=== PATIENT | female | born 1945 | race Caucasian/White ===

== ENCOUNTER 2018-08-07 15:41 | Observation (INO) | payer OTHER ==
[2018-08-07] MEDS ORDERED: MORPHINE 2 MG/ML SYR IV PRN (16:47)
[2018-08-07 17:19] LABS: Absolute Lymphocytes (CBC) 2.1 K/uL (0.7-4.9); Absolute Monocytes 0.5 K/uL (0.1-1.3); Absolute Neutrophil 5.1 K/uL (1.8-8.0); Basophils % 0.6 % (0-1.3); Eosinophils % 2.9 % (0-4.4); Hematocrit 41.1 % (36.0-45.0); Lymphocytes % 26.1 % (15.3-44.8); MPV 7.6 fL (7.6-11.3); Monocytes % 6.4 % (3.3-12.3); RBC Red Blood Cell Count 4.84 M/uL (3.86-4.86)
[2018-08-07] MEDS: NACHLORIDE 0.45% 1,000 ML IV SCH (17:29)
[2018-08-07 17:34] LABS: Albumin 4.1 g/dL (3.4-5.0); Bilirubin Total 0.4 mg/dL (0.2-1.0); Potassium 3.8 mmol/L (3.5-5.1)
[2018-08-07 18:24] LABS: Urine Appearance CLEAR; Urine Bilirubin NEGATIVE (NEG); Urine Blood 1+ (NEG); Urine Color YELLOW; Urine Glucose NEGATIVE (NEG); Urine Protein NEGATIVE (NEG); Urine Specific Gravity 1.015 (1.005-1.030); Urine Urobilinogen 0.2 mg/dL (0.2-1.0)
[2018-08-07 18:35] VITALS: BMI 29.2
[2018-08-07 18:39] LABS: Urine Microscopic Reflex ORDER UMIC
[2018-08-07 18:51] LABS: Urine Bacteria 20-50 /HPF (<20); Urine Culture Reflex Order REFLEXED; Urine RBC <5 /HPF (NONE SEEN)
--- NOTE | 2018-08-07 20:15 | RAD REPORT ---
EXAM DESCRIPTION: CT - Abdomen Pelvis W Contrast - 08/07/2018 7:44 pm CLINICAL HISTORY: Abdominal pain/right lower quadrant pain COMPARISON: [id number] TECHNIQUE: Computed axial tomography of the abdomen pelvis was obtained. 100 cc Isovue-300 was admin istered intravenously. Oral contrast was not requested which limits evaluation of bowel. All CT scans are performed using dose optimization technique as appropriate and may include automated exposure control or mA/KV adjustment according to patient size. FINDINGS: Fatty liver Cholecystectomy Spleen, pancreas, adrenal and kidneys appear unremarkable. There is no evidence of diverticulitis. Normal appendix Hysterectomy Sub centimeter left lower lobe opacity unchanged likely benign IMPRESSION: No acute abnormality is displayed.
[2018-08-08] MEDS: NACHLORIDE 0.45% 1,000 ML IV SCH ×2 (02:40→08:32)
[2018-08-08 08:40] VITALS: O2SAT 96
[2018-08-08 08:52] VITALS: BP 121/62; TEMP 98
--- NOTE | 2018-08-09 00:13 | HP ---
Date of Admission: 08/07/2018 Chief Complaint: Abdominal pain. History Of Present Illness: A 72-year-old female was brought to the office because of abdominal pain . The patient had evaluation done. She was found to have tenderness in the right umbilical area. T he patient was admitted for observation because of the amount of pain. The patient denied any histor y of vomiting. No history of discolored stools. Past Medical History: The patient is known to have history of peptic ulcer disease, hypothyroidism, hypertension, and hyperlipidemia. Past Surgical History: Positive for right knee surgery and hysterectomy. Review of Systems: The patient denied any history of chest pain. Allergies: PENICILLIN. Home Medicines: Please refer to the chart. Physical Examination: General: Revealed a 72-year-old female in moderate pain. Vital Signs: Afebrile. HEENT: No icterus. Neck: Supple. JVD negative. Chest: Clear. Heart: Regular. Abdomen: Tender right umbilical area and right lower quadrant. Bowel sounds present. No palpable ma ss. Laboratory Data: White count normal. CAT scan of the abdomen showed no acute findings other than fa tty liver. Assessment: 1.Abdominal pain. 2.Hypertension. 3.Hyperlipidemia. Plan: The patient had IV fluids, and as there is no evidence of acute abdomen and her white count i s normal, she is discharged with advice to stay on a liquid diet for 24 hours, and to follow up in [facility] office. If she continues to have symptoms, she will have further workup. TRACY/TISHA Voice ID: [id number]
== END 2018-08-08 09:45 | disposition home or self-care (01) ==
LOC: 4TH 16:20
PROVIDERS: ADMIT Internal Medicine; ATTEND Internal Medicine
DX: R10.9 Unspecified abdominal pain (principal); E03.9 Hypothyroidism, unspecified; I10 Essential (primary) hypertension; E78.5 Hyperlipidemia, unspecified; Z88.0 Allergy status to penicillin
CPT/HCPCS: 87088; 85025; 87086; 36415; 87077; 87186; 83690; 80053; 74177; Q9967; G0379; G0378; 81003; 81015

== ENCOUNTER 2018-12-08 10:25 | Emergency (ER) | payer OTHER ==
--- NOTE | 2018-12-08 11:28 | RAD REPORT ---
EXAM DESCRIPTION: CT - Head Brain Wo Cont - 12/08/2018 11:18 am CLINICAL HISTORY: Fall, right-sided head trauma, onset of nausea after head injury COMPARISON: CT head November 2008 TECHNIQUE: Axial 5 mm thick images of the head were obtained without IV contrast. All CT scans are performed using dose optimization technique as appropriate and may include automated exposure control or mA/KV adjustment according to patient size. FINDINGS: No intracranial hemorrhage, mass, edema or shift of mid-line structures. No acute infarcti on changes seen. No cortical edema or sulcal effacement. Patient has advanced atrophy and a mild for age chronic ischemic pattern. Ventricles are in proportion to the amount of volume loss. Atrophy is p rogressive from 2008. Mastoid air cells and visualized portions of the paranasal sinuses are clear. No acute bony findings. IMPRESSION: No hemorrhage or acute intracranial finding. Prominent atrophy and minimal chronic ischemic change. Atrophy has progressed from 2008.
--- NOTE | 2018-12-08 12:04 | ER ---
Nurse's Notes [facility] Name: Jennifer Hernandez Age: 73 yrs Sex: Female : 1945 Arrival Date: 12/08/2018 Time: 10:27 Bed 2 Private MD: Diagnosis: Superficial injury of head;Concussion Presentation: 12/08 10:40 Presenting complaint: Patient states: " I fell about an hour and a half ago moving a aa5 towel on the floor with my foot and hit the right side of my head on ceramic floor and I have a knot on my head now". Denies LOC, reports nausea. Denies neck pain. Denies taking anticoagulants. Transition of care: patient was not received from another setting of care. Onset of symptoms was December 2018. Risk Assessment: Do you want to hurt yourself or someone else? Patient reports no desire to harm self or others. Initial Sepsis Screen: Does the patient meet any 2 criteria? No. Patient's initial sepsis screen is negative. Does the patient have a suspected source of infection? No. Patient's initial sepsis screen is negative. Care prior to arrival: None. 10:40 Acuity: ROCIO 4 aa5 10:40 Method Of Arrival: Ambulatory aa5 11:00 Mechanism of Injury: Fall from standing position. Trauma event details: Injury occurred ph in the [facility], Injury occurred: at home. Injury occurred: December 08, 2018. Trauma Activation: Not Applicable Physician: ED Physician; Name: ; Notified At: ; Arrived At: Physician: General Surgeon; Name: ; Notified At: ; Arrived At: Physician: Radiology; Name: ; Notified At: ; Arrived At: Physician: Respiratory; Name: ; Notified At: ; Arrived At: Physician: Lab; Name: ; Notified At: ; Arrived At: Historical: - Allergies: 10:45 PENICILLINS; aa5 - Home Meds: 10:45 Synthroid 50 mcg oral tab [Active]; pravastatin 40 mg oral tab [Active]; metoprolol aa5 tartrate 50 mg Oral tab [Active]; pantoprazole oral oral [Active]; Hydrochlorothiazide Oral [Active]; - PMHx: 10:45 Hypertension; Thyroid problem; Hyperlipidemia; GERD; aa5 - PSHx: 10:46 Tonsillectomy; Adenoids; Partial hysterectomy; aa5 - Immunization history:: Adult Immunizations up to date. - Social history:: Smoking status: Patient/guardian denies using tobacco. - Immunization history: Last tetanus immunization: unknown. - Ebola Screening: : No symptoms or risks identified at this time. - Family history:: not pertinent. - Hospitalizations: : No recent hospitalization is reported. Screenin:29 Abuse screen: Denies threats or abuse. Has been threatened or abused. Nutritional ph screening: No deficits noted. Tuberculosis screening: No symptoms or risk factors identified. Fall Risk Fall in past 12 months (25 points). No secondary diagnosis (0 pts). No IV (0 pts). Ambulatory Aid- Crutches/Cane/Walker (15 pts). Gait- Normal/Bed Rest/Wheelchair (0 pts) Mental Status- Oriented to own ability (0 pts). Total [place] Scale indicates Low Risk Score (25-44 pts). Fall prevention measures have been instituted. Side Rails Up X 2 Placed close to Nursing Station Frequent Obs/Assesments occuring Family Present and informed to notify staff if they need to leave bedside As available Patient and Family Educated on Fall Prevention Program and strategies. Primary Survey: 11:00 NO uncontrolled hemorrhage observed. A: The patient is alert. Airway: patent, No ph supplemental oxygen in use on arrival. Oral cavity: clear. Breathing/Chest: Respiratory pattern: regular, Respiratory effort: spontaneous, unlabored. Circulation: Skin color: pink, Skin temperature: warm, dry. Disability Alert. Exposure/Environment: There is no evidence of uncontrolled external bleeding. No obvious injuries are noted at this time. 12:26 Reassessment Airway Airway Patent Breathing/Chest Respiratory pattern Regular ph Respiratory effort Spontaneous Unlabored Circulation Color [place] Disability Alert. Secondary Survey: 11:00 HEENT: Head Other small hematoma to R back of head. Gastrointestinal: No deficits ph noted. : No signs and/or symptoms were reported regarding the genitourinary system. Musculoskeletal: No deficits noted. No signs and/or symptoms reported regarding the musculoskeletal system. Assessment: 11:00 General: Appears in no apparent distress. comfortable, Behavior is calm, cooperative, ph appropriate for age. Pain: Complains of pain in right side of the back of head. Neuro: Level of Consciousness is awake, alert, obeys commands, Oriented to person, place, time, situation, Moves all extremities. Full function Reports headache Denies weakness dizziness. Cardiovascular: Capillary refill < 3 seconds in bilateral fingers Patient's skin is warm and dry. Respiratory: Airway is patent Respiratory effort is even, unlabored. GI: Reports nausea, Patient currently denies vomiting. Derm: Skin is intact, Skin is pink, warm \\T\\ dry. Musculoskeletal: Circulation, motion, and sensation intact. Range of motion: intact in all extremities. 12:24 Reassessment: Patient appears in no apparent distress at this time. Patient and/or ph family updated on plan of care and expected duration. Pain level reassessed. Patient is alert, oriented x 3, equal unlabored respirations, skin warm/dry/pink. Pt d/c home w/ family. Vital Signs: 10:46 BP 146 / 67; Pulse 66; Resp 16; Temp 98.4(TE); Pulse Ox 96% on R/A; Pain 5/10; aa5 12:25 BP 136 / 78; Pulse 64; Resp 18; Temp 97.9; Pulse Ox 97% on R/A; ph Claudia Coma Score: 11:00 Eye Response: spontaneous(4). Verbal Response: oriented(5). Motor Response: obeys ph commands(6). Total: 15. 11:05 Eye Response: spontaneous(4). Verbal Response: oriented(5). Motor Response: obeys rn commands(6). Total: 15. 12:03 Eye Response: spontaneous(4). Verbal Response: oriented(5). Motor Response: obeys rn commands(6). Total: 15. 12:25 Eye Response: spontaneous(4). Verbal Response: oriented(5). Motor Response: obeys ph commands(6). Total: 15. Trauma Score (Adult): 11:00 Eye Response: spontaneous(1); Verbal Response: oriented(1); Motor Response: obeys ph commands(2); Systolic BP: > 89 mm Hg(4); Respiratory Rate: 10 to 29 per min(4); Claudia Score: 15; Trauma Score: 12 12:25 Eye Response: spontaneous(1); Verbal Response: oriented(1); Motor Response: obeys ph commands(2); Systolic BP: > 89 mm Hg(4); Respiratory Rate: 10 to 29 per min(4); Claudia Score: 15; Trauma Score: 12 ED Course: 10:27 Patient arrived in ED. as 10:42 Triage completed. aa5 10:42 Arm band placed on. aa5 10:48 Amira Daley RN is Primary Nurse. ph 10:53 Von Cool MD is Attending Physician. rn 11:00 Patient has correct armband on for positive identification. Bed in low position. Call ph light in reach. Side rails up X 1. Pulse ox on. NIBP on. Door closed. Noise minimized. Warm blanket given. 11:00 Patient maintains SpO2 saturation greater than 95% on room air. Thermoregulation: warm ph blanket given to patient. 11:17 CT Head Brain wo Cont In Process Unspecified. EDMS 11:17 CT completed. Patient tolerated procedure well. Patient moved back from CT. kw1 12:28 No provider procedures requiring assistance completed. Patient did not have IV access ph during this emergency room visit. Administered Medications: No medications were administered Intake: 11:00 PO: 0ml; Total: 0ml. ph 12:25 PO: 0ml; Total: 0ml. ph Output: 11:00 Urine: 250ml (Voided); Total: 250ml. ph 12:25 Urine: 0ml; Total: 250ml. ph Outcome: 12:04 Discharge ordered by MD. rn 12:30 Discharged to home ambulatory, with family. ph 12:30 Condition: good 12:30 Discharge instructions given to patient, Instructed on discharge instructions, follow up and referral plans. Demonstrated understanding of instructions, follow-up care. 12:30 Patient's length of stay was not longer than 2 hours. ph 12:30 Patient left the ED. ph Signatures: Dispatcher [employer] EDMS Margie Odom as Von Cool MD MD rn Calderon, Audri, RN RN aa5 Amira Daley RN RN Paulette Aleman kw1 Corrections: (The following items were deleted from the chart) 10:47 10:46 BP 146 / 67; Pulse 66bpm; Resp 16bpm; Pulse Ox 96% RA; Temp 98.4F Temporal; aa5 aa5
--- NOTE | 2018-12-08 12:05 | EDPHYS ---
Physician Documentation [facility] Name: Jennifer Hernandez Age: 73 yrs Sex: Female : 1945 Arrival Date: 12/08/2018 Time: 10:27 Bed 2 Private MD: ED Physician Von Cool HPI: 12/08 11:05 This 73 yrs old Female presents to ER via Ambulatory with complaints of Head rn Injury Without LOC-Adult. 11:05 The patient or guardian reports injury. The complaints affect the back of head. Onset: rn The symptoms/episode began/occurred 1 hour(s) ago. Severity of symptoms: At their worst the symptoms were mild, in the emergency department the symptoms are unchanged. The patient has experienced similar episodes in the past. Reports fall from standing, slipped on towel, hit back of head, son states a little more forgetful than usual after fall, not on blood thinner, remembers all events, no vomiting, no focal neuro complaint.. Historical: - Allergies: 10:45 PENICILLINS; aa5 - Home Meds: 10:45 Synthroid 50 mcg oral tab [Active]; pravastatin 40 mg oral tab [Active]; metoprolol aa5 tartrate 50 mg Oral tab [Active]; pantoprazole oral oral [Active]; Hydrochlorothiazide Oral [Active]; - PMHx: 10:45 Hypertension; Thyroid problem; Hyperlipidemia; GERD; aa5 - PSHx: 10:46 Tonsillectomy; Adenoids; Partial hysterectomy; aa5 - Immunization history:: Adult Immunizations up to date. - Social history:: Smoking status: Patient/guardian denies using tobacco. - Immunization history: Last tetanus immunization: unknown. - Ebola Screening: : No symptoms or risks identified at this time. - Family history:: not pertinent. - Hospitalizations: : No recent hospitalization is reported. ROS: 11:05 Constitutional: Negative for fever, chills, and weight loss, Eyes: Negative for injury, rn pain, redness, and discharge, Neck: Negative for injury, pain, and swelling, Cardiovascular: Negative for chest pain, palpitations, and edema, Respiratory: Negative for shortness of breath, cough, wheezing, and pleuritic chest pain, Abdomen/GI: Negative for abdominal pain, nausea, vomiting, diarrhea, and constipation, MS/Extremity: Negative for injury and deformity, Skin: Negative for injury, rash, and discoloration, Neuro: Negative for weakness, numbness, tingling, and seizure. Exam: 11:05 Constitutional: This is a well developed, well nourished patient who is awake, alert, rn and in no acute distress. Head/Face: Normocephalic, atraumatic. Eyes: Pupils equal round and reactive to light, extra-ocular motions intact. Lids and lashes normal. Conjunctiva and sclera are non-icteric and not injected. Cornea within normal limits. Periorbital areas with no swelling, redness, or edema. ENT: No oral trauma Neck: No midline tenderness, FROM Skin: Warm, dry MS/ Extremity: Pulses equal, no cyanosis. Neurovascular intact. Full, normal range of motion. Equal circumference. Neuro: Awake and alert, GCS 15, oriented to person, place, time, and situation. Cranial nerves II-XII grossly intact. Motor strength 5/5 in all extremities. Sensory grossly intact. Cerebellar exam normal. Vital Signs: 10:46 BP 146 / 67; Pulse 66; Resp 16; Temp 98.4(TE); Pulse Ox 96% on R/A; Pain 5/10; aa5 12:25 BP 136 / 78; Pulse 64; Resp 18; Temp 97.9; Pulse Ox 97% on R/A; ph [place] Coma Score: 11:00 Eye Response: spontaneous(4). Verbal Response: oriented(5). Motor Response: obeys ph commands(6). Total: 15. 11:05 Eye Response: spontaneous(4). Verbal Response: oriented(5). Motor Response: obeys rn commands(6). Total: 15. 12:03 Eye Response: spontaneous(4). Verbal Response: oriented(5). Motor Response: obeys rn commands(6). Total: 15. 12:25 Eye Response: spontaneous(4). Verbal Response: oriented(5). Motor Response: obeys ph commands(6). Total: 15. Trauma Score (Adult): 11:00 Eye Response: spontaneous(1); Verbal Response: oriented(1); Motor Response: obeys ph commands(2); Systolic BP: > 89 mm Hg(4); Respiratory Rate: 10 to 29 per min(4); Claudia Score: 15; Trauma Score: 12 12:25 Eye Response: spontaneous(1); Verbal Response: oriented(1); Motor Response: obeys ph commands(2); Systolic BP: > 89 mm Hg(4); Respiratory Rate: 10 to 29 per min(4); [place] Score: 15; Trauma Score: 12 MDM: 10:53 Patient medically screened. rn 12:03 Differential diagnosis: Contusion of Hematoma on Intracranial bleed- Concussion rn cerebral contusion. Data reviewed: vital signs, nurses notes, radiologic studies, CT scan, and as a result, I will discharge patient. Counseling: I had a detailed discussion with the patient and/or guardian regarding: the historical points, exam findings, and any diagnostic results supporting the discharge/admit diagnosis, radiology results, the need for outpatient follow up, to return to the emergency department if symptoms worsen or persist or if there are any questions or concerns that arise at home. Special discussion: Based on the patient's history, exam and DX evaluation, there is no indication for emergent intervention or inpatient TX. It is understood by the patient/guardian that if the SXs persist or worsen they need to return immediately for re-evaluation. I discussed with the patient/guardian in detail that at this point there is no indication for admission to the hospital. It is understood, however, that if the symptoms persist or worsen the patient needs to return immediately for re-evaluation. 12/08 10:53 Order name: CT Head Brain wo Cont; Complete Time: 11:48 rn Administered Medications: No medications were administered Disposition: 12/08/18 12:04 Discharged to Home. Impression: Superficial injury of head, Concussion. - Condition is Stable. - Discharge Instructions: Concussion, Adult, Head Injury, Adult. - Medication Reconciliation Form, Thank You Letter, Antibiotic Education, Prescription Opioid Use form. - Follow up: Private Physician; When: As needed; Reason: Recheck today's complaints, Re-evaluation by your physician. - Problem is new. - Symptoms have improved. Signatures: Dispatcher [employer] EDVon Gtz MD MD rn Calderon, Audri, RN RN aa5 Amira Daley RN RN ph Corrections: (The following items were deleted from the chart) 12:30 12:04 12/08/2018 12:04 Discharged to Home. Impression: Superficial injury of head; ph Concussion. Condition is Stable. Forms are Medication Reconciliation Form, Thank You Letter, Antibiotic Education, Prescription Opioid Use. Follow up: Private Physician; When: As needed; Reason: Recheck today's complaints, Re-evaluation by your physician. Problem is new. Symptoms have improved. rn
[2018-12-08 13:23] VITALS: BP 136/78; TEMP 97.9; O2SAT 97
== END 2018-12-08 12:30 | disposition home or self-care (01) ==
LOC: ER 10:25
DX: S06.0X0A Concussion without loss of consciousness, initial encounter (principal); S00.90XA Unspecified superficial injury of unspecified part of head, initial encounter; W01.198A Fall on same level from slipping, tripping and stumbling with subsequent striking against other object, initial encounter; Y93.89 Activity, other specified; Y92.9 Unspecified place or not applicable
CPT/HCPCS: 70450; 99284

== ENCOUNTER 2019-06-24 19:12 | Emergency (ER) | payer OTHER, BC ==
[2019-06-24 20:11] LABS: Absolute Lymphocytes (CBC) 2.2 K/uL (0.7-4.9); Basophils % 0.5 % (0-1.3); Hematocrit 41.7 % (36.0-45.0); Lymphocytes % 22.9 % (15.3-44.8); MPV 8.2 fL (7.6-11.3); RBC Red Blood Cell Count 5.07 M/uL (3.86-4.86)
[2019-06-24] MEDS ORDERED: MAGNE/ALUM HYDROXD 30 ML UCUP ONE (20:28)
[2019-06-24] MEDS ORDERED: LIDOCAINE VISCOUS 2% SOLN 15 ML UDC ONE (20:29)
[2019-06-24] MEDS ORDERED: FAMOTIDINE 20 MG/2 ML VIAL IV ONE (20:29)
[2019-06-24] MEDS ORDERED: LORazepam 2 MG/ML VIAL ONE (20:42)
[2019-06-24 20:43] LABS: Albumin 3.8 g/dL (3.4-5.0); Bilirubin Direct 0.1 mg/dL (0-0.2); Bilirubin Total 0.4 mg/dL (0.2-1.0); Potassium 3.6 mmol/L (3.5-5.1); Protein, Total 7.9 g/dL (6.4-8.2)
[2019-06-24] MEDS ORDERED: ONDANSETRON 4 MG/2 ML VIAL ONE (20:43)
[2019-06-24 20:48] LABS: Urine Blood 3+ (NEG); Urine Glucose NEGATIVE (NEG); Urine Protein NEGATIVE (NEG); Urine Specific Gravity 1.025 (1.005-1.030)
--- NOTE | 2019-06-24 21:30 | ER ---
Nurse's Notes [facility] Name: Jennifer Hernandez Age: 73 yrs Sex: Female : 1945 Arrival Date: 06/24/2019 Time: 19:15 Bed 30 Private MD: Diagnosis: Abdominal and pelvic pain Presentation: 06/23 19:24 Chief complaint: Patient states: Pain on L side under the breast area since about 20 ca1 minutes ago. Described as sharp, throbbing pain. Denies injury, cough and congestion. Denies N/V/dizziness/SOB. Coronavirus screen: Patient denies fever greater than 100.4F, cough, shortness of breath, or difficulty breathing. Proceed with normal triage process. Ebola Screen: Patient negative for fever greater than or equal to 101.5 degrees Fahrenheit, and additional compatible Ebola Virus Disease symptoms Patient denies exposure to infectious person. Patient denies travel to an Ebola-affected area in the 21 days before illness onset. No symptoms or risks identified at this time. Initial Sepsis Screen: Does the patient meet any 2 criteria? No. Patient's initial sepsis screen is negative. Does the patient have a suspected source of infection? No. Patient's initial sepsis screen is negative. Risk Assessment: Do you want to hurt yourself or someone else? Patient reports no desire to harm self or others. Onset of symptoms was June 24, 2019. 19:24 Method Of Arrival: Ambulatory ca1 19:24 Acuity: ROCIO 3 ca1 Historical: - Allergies: 19:28 PENICILLINS; ca1 - PMHx: 19:28 GERD; Hyperlipidemia; Hypertension; Thyroid problem; ca1 - PSHx: 19:28 Tonsillectomy; Adenoids; Partial hysterectomy; ca1 - Immunization history:: Adult Immunizations up to date, Pneumococcal vaccine is not up to date, Flu vaccine is up to date. - Social history:: Smoking status: Patient/guardian denies using tobacco, the patient reports quitting approximately 15 years ago, Patient/guardian denies using alcohol, street drugs, The patient lives with family. - Family history:: not pertinent. Screenin:00 Abuse screen: Denies threats or abuse. Denies injuries from another. Nutritional wh screening: No deficits noted. Tuberculosis screening: No symptoms or risk factors identified. Fall Risk None identified. Assessment: 19:46 General: Appears in no apparent distress. uncomfortable, Behavior is calm, cooperative, wh appropriate for age. Pain: Complains of pain in left upper quadrant Pain does not radiate. Pain currently is 7 out of 10 on a pain scale. Quality of pain is described as aching, Pain began 1 hour ago. Neuro: Level of Consciousness is awake, alert, obeys commands, Oriented to person, place, time, situation, Appropriate for age. Cardiovascular: Heart tones S1 S2. Respiratory: Airway is patent Respiratory effort is even, unlabored, Respiratory pattern is regular, symmetrical, Breath sounds are clear bilaterally. GI: Abdomen is flat, non-distended, Bowel sounds present X 4 quads. Abd is soft and non tender X 4 quads. Reports upper abdominal pain, nausea. : No signs and/or symptoms were reported regarding the genitourinary system. EENT: No signs and/or symptoms were reported regarding the EENT system. Derm: Skin is intact, is healthy with good turgor, Skin is pink, warm \T\ dry. normal. Musculoskeletal: Circulation, motion, and sensation intact. 21:00 Reassessment: Patient appears in no apparent distress at this time. No changes from previously documented assessment. Patient and/or family updated on plan of care and expected duration. Pain level reassessed. Patient is alert, oriented x 3, equal unlabored respirations, skin warm/dry/pink. 21:59 Reassessment: Patient appears in no apparent distress at this time. No changes from previously documented assessment. Patient and/or family updated on plan of care and expected duration. Pain level reassessed. Patient is alert, oriented x 3, equal unlabored respirations, skin warm/dry/pink. Patient states feeling better. Patient states symptoms have improved. Vital Signs: 19:24 BP 144 / 99; Pulse 70; Resp 17 S; Temp 98(O); Pulse Ox 98% on R/A; Weight 80.74 kg (R); ca1 Height 5 ft. 4 in. (162.56 cm) (R); Pain 10/10; 20:45 BP 145 / 78; Pulse 67; Resp 18; Pulse Ox 98% on R/A; wh 21:45 BP 165 / 91; Pulse 74; Resp 18; Pulse Ox 97% on R/A; wh 19:24 Body Mass Index 30.55 (80.74 kg, 162.56 cm) [facility] ED Course: 19:15 Patient arrived in ED. cf2 19:27 Triage completed. ca1 19:28 Khai Ohara, HUGH is Primary Nurse. ll1 19:28 Arm band placed on right wrist. ca1 19:33 Robin Flanagan MD is Attending Physician. ma2 19:45 Missed attempt(s): 20 gauge in right forearm. Bleeding controlled, band aid applied, ll1 catheter tip intact. 20:00 Patient has correct armband on for positive identification. Bed in low position. Call light in reach. Side rails up X 1. Pulse ox on. NIBP on. 20:19 Lab(s) recollected, by me, sent to lab. Inserted saline lock: 22 gauge in left forearm, [facility] using aseptic technique. Blood collected. 21:17 CT Abd/Pelvis - IV Contrast Only In Process Unspecified. EDMS 21:18 Chest Single View XRAY In Process Unspecified. EDMS 22:01 No provider procedures requiring assistance completed. IV discontinued, intact, bleeding controlled, No redness/swelling at site. Administered Medications: 20:01 CANCELLED (Patient Refused): Ativan 1 mg IVP once mi2 20:02 CANCELLED (Patient Refused): Zofran (Ondansetron) 4 mg IVP once; over 2 minutes [facility] 20:32 Drug: Pepcid 20 mg Route: IVP; Site: left antecubital; 22:04 Follow up: Response: No adverse reaction 20:32 Drug: GI Cocktail without - (Maalox Suspension 30 ml, Lidocaine Liquid 2 % 15 wh ml) Route: PO; 22:04 Follow up: Response: No adverse reaction; Pain is decreased 20:43 Drug: Ativan 0.5 mg Route: IVP; Site: left forearm; 22:04 Follow up: Response: No adverse reaction; RASS: Alert and Calm (0) 20:45 Drug: Zofran (Ondansetron) 4 mg Route: IVP; Site: left forearm; 22:03 Follow up: Response: No adverse reaction 21:02 Not Given (Physician Discretion): chlorproMAZINE 25 mg IV at calculated rate once Outcome: 21:30 Discharge ordered by . ma2 22:01 Discharged to home ambulatory. 22:01 Condition: stable 22:01 Discharge instructions given to patient, Instructed on discharge instructions, follow up and referral plans. medication usage, POC Demonstrated understanding of instructions, follow-up care, medications, POC Prescriptions given X 1. 22:05 Patient left the ED. Signatures: Dispatcher [employer] EDMS Keith Morejon Robin Flanagan MD MD ma2 Gloria Nettles RN RN [facility] Sebastian Pal 2 Khai Ohara RN RN ll1
--- NOTE | 2019-06-24 21:31 | EDPHYS ---
Physician Documentation [facility] Name: Jennifer Hernandez Age: 73 yrs Sex: Female : 1945 Arrival Date: 06/24/2019 Time: 19:15 Bed 30 Private MD: ED Physician Robin Flanagan HPI: 06/23 19:58 This 73 yrs old Female presents to ER via Ambulatory with complaints of ma2 Abdominal Pain, Breast Problem. 19:58 The patient presents with abdominal pain in the epigastric area. Onset: The ma2 symptoms/episode began/occurred gradually, 1 hour(s) ago. Associated signs and symptoms: Pertinent negatives: anorexia, constipation, dysuria, headache, vaginal discharge, vomiting. Severity of pain: At its worst the pain was moderate. The patient has not experienced similar symptoms in the past. Historical: - Allergies: 19:28 PENICILLINS; ca1 - PMHx: 19:28 GERD; Hyperlipidemia; Hypertension; Thyroid problem; ca1 - PSHx: 19:28 Tonsillectomy; Adenoids; Partial hysterectomy; ca1 - Immunization history:: Adult Immunizations up to date, Pneumococcal vaccine is not up to date, Flu vaccine is up to date. - Social history:: Smoking status: Patient/guardian denies using tobacco, the patient reports quitting approximately 15 years ago, Patient/guardian denies using alcohol, street drugs, The patient lives with family. - Family history:: not pertinent. ROS: 19:58 Constitutional: Negative for fever, chills, and weight loss. ma2 19:58 All other systems are negative. Exam: 19:58 Constitutional: This is a well developed, well nourished patient who is awake, alert, ma2 and in no acute distress. Head/Face: Normocephalic, atraumatic. Eyes: Pupils equal round and reactive to light, extra-ocular motions intact. Lids and lashes normal. Conjunctiva and sclera are non-icteric and not injected. Cornea within normal limits. Periorbital areas with no swelling, redness, or edema. ENT: Nares patent. No nasal discharge, no septal abnormalities noted. Tympanic membranes are normal and external auditory canals are clear. Oropharynx with no redness, swelling, or masses, exudates, or evidence of obstruction, uvula midline. Mucous membranes moist. Neck: Trachea midline, no thyromegaly or masses palpated, and no cervical lymphadenopathy. Supple, full range of motion without nuchal rigidity, or vertebral point tenderness. No Meningismus. Chest/axilla: Normal chest wall appearance and motion. Nontender with no deformity. No lesions are appreciated. Cardiovascular: Regular rate and rhythm with a normal S1 and S2. No gallops, murmurs, or rubs. Normal PMI, no JVD. No pulse deficits. Respiratory: Lungs have equal breath sounds bilaterally, clear to auscultation and percussion. No rales, rhonchi or wheezes noted. No increased work of breathing, no retractions or nasal flaring. Abdomen/GI: Soft, non-tender, with normal bowel sounds. No distension or tympany. No guarding or rebound. No evidence of tenderness throughout. MS/ Extremity: Pulses equal, no cyanosis. Neurovascular intact. Full, normal range of motion. Neuro: Awake and alert, GCS 15, oriented to person, place, time, and situation. Cranial nerves II-XII grossly intact. Motor strength 5/5 in all extremities. Sensory grossly intact. Cerebellar exam normal. Normal gait. Vital Signs: 19:24 BP 144 / 99; Pulse 70; Resp 17 S; Temp 98(O); Pulse Ox 98% on R/A; Weight 80.74 kg (R); ca1 Height 5 ft. 4 in. (162.56 cm) (R); Pain 10/10; 20:45 BP 145 / 78; Pulse 67; Resp 18; Pulse Ox 98% on R/A; wh 21:45 BP 165 / 91; Pulse 74; Resp 18; Pulse Ox 97% on R/A; wh 19:24 Body Mass Index 30.55 (80.74 kg, 162.56 cm) ca1 MDM: 19:33 Patient medically screened. ma2 21:28 Differential diagnosis: non-specific abd pain, pancreatitis, Peptic Ulcer Disease, ma2 Perf. Duodenal Ulcer. Data reviewed: vital signs, nurses notes. Counseling: I had a detailed discussion with the patient and/or guardian regarding: the historical points, exam findings, and any diagnostic results supporting the discharge/admit diagnosis, the presence of at least one elevated blood pressure reading (>120/80) during this emergency department visit, lab results. Response to treatment: the patient's symptoms have resolved after treatment. ED course: ct abd wnl. 06/23 19:38 Order name: Basic Metabolic Panel [facility] 06/23 19:38 Order name: CBC with Diff [facility] 06/23 19:38 Order name: Creatinine for Radiology [facility] 06/23 19:38 Order name: Hepatic Function [facility] 06/23 19:38 Order name: Lipase [facility] 06/23 19:58 Order name: Troponin (emerg Dept Use Only) [facility] 06/23 20:05 Order name: Urine Dipstick--Ancillary (enter results) [facility] 06/23 20:15 Order name: CBC with Automated Diff; Complete Time: 20:53 EDMS 06/23 20:38 Order name: Troponin (Emerg Dept Use Only); Complete Time: 20:53 EDMS 06/23 20:46 Order name: Basic Metabolic Panel; Complete Time: 20:53 EDMS 06/23 20:46 Order name: Liver (Hepatic) Function; Complete Time: 20:53 EDMS 06/23 20:46 Order name: Lipase; Complete Time: 20:53 EDMS 06/23 20:46 Order name: Creatinine (Radiology Only); Complete Time: 20:53 EDMS 06/23 20:49 Order name: Urine Dipstick-Ancillary; Complete Time: 20:53 EDMS 06/23 19:38 Order name: IV Saline Lock; Complete Time: 20:32 ca2 06/23 19:38 Order name: Labs collected and sent; Complete Time: 20:01 [facility] 06/23 19:58 Order name: CT Abd/Pelvis - IV Contrast Only; Complete Time: 14:41 [facility] 06/23 19:58 Order name: Chest Single View XRAY; Complete Time: 14:41 [facility] 06/23 19:58 Order name: EKG - Nurse/Tech; Complete Time: 20:32 ma2 Administered Medications: 20:01 CANCELLED (Patient Refused): Ativan 1 mg IVP once ma2 20:02 CANCELLED (Patient Refused): Zofran (Ondansetron) 4 mg IVP once; over 2 minutes ca2 20:32 Drug: Pepcid 20 mg Route: IVP; Site: left antecubital; 22:04 Follow up: Response: No adverse reaction 20:32 Drug: GI Cocktail without - (Maalox Suspension 30 ml, Lidocaine Liquid 2 % 15 wh ml) Route: PO; 22:04 Follow up: Response: No adverse reaction; Pain is decreased 20:43 Drug: Ativan 0.5 mg Route: IVP; Site: left forearm; 22:04 Follow up: Response: No adverse reaction; RASS: Alert and Calm (0) 20:45 Drug: Zofran (Ondansetron) 4 mg Route: IVP; Site: left forearm; 22:03 Follow up: Response: No adverse reaction 21:02 Not Given (Physician Discretion): chlorproMAZINE 25 mg IV at calculated rate once Disposition: 06/24/19 21:30 Discharged to Home. Impression: Abdominal and pelvic pain. - Condition is Stable. - Discharge Instructions: Abdominal Pain, Adult. - Prescriptions for Chlorpromazine 25 mg Oral Tablet - take 1 tablet by ORAL route every 8 hours; 100 tablet. - Medication Reconciliation Form, Thank You Letter, Antibiotic Education, Prescription Opioid Use form. - Follow up: Private Physician; When: Tomorrow; Reason: Continuance of care. Signatures: Dispatcher [employer] EDMS Keith Morejon Robin Flanagan MD MD ca2 Gloria Nettles RN RN ca1 Corrections: (The following items were deleted from the chart) 20:01 19:58 Ativan 1 mg IVP once ordered. [place] [id number] 20:02 19:58 Zofran (Ondansetron) 4 mg IVP once; over 2 minutes ordered. [place] [id number] 22:05 21:30 06/24/2019 21:30 Discharged to Home. Impression: Abdominal and pelvic pain. Condition is Stable. Prescriptions for Chlorpromazine 25 mg Oral Tablet - take 1 tablet by ORAL route every 8 hours; 100 tablet. and Forms are Medication Reconciliation Form, Thank You Letter, Antibiotic Education, Prescription Opioid Use. Follow up: Private Physician; When: Tomorrow; Reason: Continuance of care. ma2
[2019-06-24 22:19] VITALS: TEMP 98
[2019-06-24 22:22] VITALS: BP 165/91; O2SAT 97
--- NOTE | 2019-06-25 07:01 | RAD REPORT ---
EXAM DESCRIPTION: RAD - Chest Single View - 06/24/2019 8:24 pm CLINICAL HISTORY: CHEST PAIN COMPARISON: February 2019 TECHNIQUE: AP portable chest image was obtained 06/24/2019 8:24 pm . FINDINGS: Lungs are clear. Heart and vasculature are normal. No measurable pleural effusion and no p neumothorax. No acute bony abnormality seen. No acute aortic findings suspected. IMPRESSION: No acute cardiopulmonary process.
--- NOTE | 2019-06-25 10:53 | RAD REPORT ---
EXAM DESCRIPTION: CT - Abdomen Pelvis W Contrast - 06/25/2019 3:57 am CLINICAL HISTORY: Epigastric pain. COMPARISON: 08/07/2018 TECHNIQUE: CT scan of the abdomen and pelvis was performed with IV contrast. This exam was performed according to our departmental dose-optimization program, which includes automated exposure control, adjustment of the mA and/or kV according to patient size and/or use of iterative reconstruction techn ique. FINDINGS: The lung bases are clear. No pleural or pericardial effusions. There is mild hepatic steat osis. There has been a prior cholecystectomy. The spleen, pancreas, adrenal glands, and kidneys are u nremarkable. No hydronephrosis or urinary stones are seen. There has been a prior hysterectomy. No small bowel obstruction. The appendix is normal. No evidence of acute diverticulitis. No adenopath y, free fluid, or free air is identified. The aorta is normal in caliber. No acute bony findings are seen. No abnormal body wall hernia. IMPRESSION: 1. No acute abdominal or pelvic findings. 2. Mild hepatic steatosis. Correlate with lab values. Electronically signed by: Kory Alvarez MD 06/24/2019 9:16 PM CDT Due to temporary technical issues with the PACS/Fluency reporting system, reports are being signed by the in house radiologist as a courtesy to ensure prompt reporting. The interpreting radiologist is f ully responsible for the content of the report.
--- NOTE | 2019-06-25 12:25 | EKG ---
Test Date: 2019-06-24 Test Time: 20:26:58 Stationary Fireman: RADHA MEASUREMENT RESULTS: Intervals: Rate: 72 MD: 170 QRSD: 74 QT: 412 QTc: 451 [place]: P: 83 MD: 170 QRS: 90 T: 71 INTERPRETIVE STATEMENTS: Normal sinus rhythm Rightward axis Borderline ECG Compared to ECG 08/27/2013 17:58:31 Right-axis deviation now present Ventricular premature complex(es) no longer present Electronically Signed On 06-25-19 12:24:37 CDT by Alexander Sellers
== END 2019-06-24 22:05 | disposition home or self-care (01) ==
LOC: ER 19:12
DX: R10.2 Pelvic and perineal pain (principal); I10 Essential (primary) hypertension; Z88.0 Allergy status to penicillin
CPT/HCPCS: 93005; 85025; 80048; 36415; 80076; 81003; 84484; 83690; 74177; 71045; 96375; 96374; 99284; Q9967; J2405

== ENCOUNTER → 2023-04-12 | Emergency (ER) | payer OTHER, BC ==
--- NOTE | 2023-04-12 11:30 | RAD REPORT ---
EXAM DESCRIPTION: CT - Head Brain Wo Cont - 04/12/2023 11:08 am CLINICAL HISTORY: TRAUMA COMPARISON: Head Brain Wo Cont dated 07/16/2021; Head Brain Wo Cont dated 02/11/2020 TECHNIQUE: Noncontrast head CT images ad were obtained without IV contrast. Multiplanar reformats we re generated and reviewed. All CT scans are performed using dose optimization technique as appropriate and may include automated exposure control or mA/KV adjustment according to patient size. FINDINGS: No intracranial hemorrhage, mass, or edema. Midline structures are unremarkable. Stable ventricular caliber with disproportionate prominence of the ventricles relative to the sulci a nd crowding of the sulci at the vertex. Lira-white matter differentiation is preserved, without evidence of acute infarct. No abnormal extra- axial fluid collections. Mastoid air cells and visualized portions of the paranasal sinuses are clear. No acute bony findings. IMPRESSION: No evidence of an acute intracranial process. Stable ventricular prominence, out of proportion to sulcal prominence, may indicate normal pressure h ydrocephalus in the appropriate clinical setting.
--- NOTE | 2023-04-12 11:38 | ER ---
Nurse's Notes [facility] Name: Jennifer Hernandez Age: 77 yrs Sex: Female : 1945 Arrival Date: 04/12/2023 Time: 10:44 Bed 4 Private MD: Diagnosis: Closed head injury, scalp laceration Presentation: 04/12 10:56 Chief complaint: Patient states: Fell 3 weeks ago. Healing laceration to L posterior ll1 scalp area. No fever or pain. No N/V or ALEJO. Sent for further evaluation by Dr. Kumar's office. Coronavirus screen: Vaccine status: Patient reports receiving the 2nd dose of the covid vaccine. Client denies travel out of the [place] in the last 14 days. At this time, the client does not indicate any symptoms associated with coronavirus-19. Ebola Screen: Patient denies travel to an Ebola-affected area in the 21 days before illness onset. Initial Sepsis Screen: Does the patient meet any 2 criteria? No. Patient's initial sepsis screen is negative. Does the patient have a suspected source of infection? Yes: Skin breakdown/wound. Risk Assessment: Do you want to hurt yourself or someone else? Patient reports no desire to harm self or others. Onset of symptoms was March 31, 2023. 10:56 Method Of Arrival: Wheelchair ll1 10:56 Acuity: ROCIO 3 ll1 Historical: - Allergies: 10:56 PENICILLINS; ll1 - PMHx: 10:56 GERD; Hyperlipidemia; Hypertension; Thyroid problem; ll1 - Immunization history:: Adult Immunizations up to date. - Social history:: Smoking status: Patient denies any tobacco usage or history of. Screenin:36 [facility] ED Fall Risk Assessment (Adult) History of falling in the last 3 months, ko1 including since admission Yes- single mechanical fall (1 pt) Confusion or Disorientation No (0 pts) Intoxicated or Sedated No (0 pts) Impaired Gait Yes (1 pt) Mobility Assist Device Used No (0 pt) Altered Elimination No (0 pt) Score/Fall Risk Level 0 - 2 = Low Risk Oriented to surroundings, Maintained a safe environment, Educated pt \T\ family on fall prevention, incl call for assistance when getting out of bed, Assessed \T\ reinforced patient's understanding of fall precautions, Provided non-skid footwear, Hourly rounding (assess needs \T\ fall precautionary measures) done, Used ambulatory aids as needed (educated on \T\ assisted with), Used gait belt as appropriate. Abuse screen: Denies threats or abuse. Denies injuries from another. Nutritional screening: No deficits noted. Tuberculosis screening: No symptoms or risk factors identified. Assessment: 11:36 General: Appears in no apparent distress. comfortable, Behavior is cooperative, ko1 appropriate for age, anxious. Pain: Denies pain. Neuro: No deficits noted. Cardiovascular: No deficits noted. Respiratory: No deficits noted. GI: No deficits noted. : No deficits noted. EENT: No deficits noted. Derm: No deficits noted. Musculoskeletal: No deficits noted. Injury Description: Laceration. Vital Signs: 10:56 Weight 75.3 kg; Height 5 ft. 4 in. ; Pain 0/10; ll1 11:02 BP 152 / 76; Pulse 64; Resp 20; Temp 97.5; Pulse Ox 99% on R/A; aw1 10:56 Body Mass Index 28.49 (75.30 kg, 162.56 cm) ll1 10:56 Pain Scale: Adult ll1 ED Course: 10:49 Patient arrived in ED. im 10:52 Andi Miguel MD is Attending Physician. sp3 10:56 Arm band placed on. ll1 10:58 Triage completed. ll1 11:03 Alison Enrique, RN is Primary Nurse. ko1 11:09 CT Head Brain wo Cont In Process Unspecified. EDMS 11:36 Patient has correct armband on for positive identification. Placed in gown. Bed in low ko1 position. Call light in reach. Side rails up X 1. Provided Education on: na. Client placed on continuous cardiac and pulse oximetry monitoring. NIBP monitoring applied. panel monitor on. Door closed. Noise minimized. Lights dimmed. 11:36 No provider procedures requiring assistance completed. Patient did not have IV access ko1 during this emergency room visit. Administered Medications: No medications were administered Medication: 11:36 VIS not applicable for this client. ko1 Outcome: 11:38 Discharge ordered by . sp3 11:42 Discharged to home ambulatory, ld1 11:42 Condition: stable 11:42 Discharge instructions given to patient, Instructed on discharge instructions, follow up and referral plans. Demonstrated understanding of instructions, follow-up care, 11:43 Patient left the ED. ld1 Signatures: Dispatcher [employer] Khai Varela RN RN ll1 Faiza De La Cruz RN RN ld1 Andi Miguel MD MD sp3 Alison Enrique RN RN ko1 Suzanne Hunt Alyssa aw1
--- NOTE | 2023-04-12 11:38 | EDPHYS ---
Physician Documentation [facility] Name: Jennifer eHrnandez Age: 77 yrs Sex: Female : 1945 Arrival Date: 04/12/2023 Time: 10:44 Bed 4 Private MD: ED Physician Andi Miguel HPI: 04/12 11:39 This 77 yrs old Female presents to ER via Wheelchair with complaints of Fall Injury - 3 sp3 weeks ago, Laceration To Scalp/Face. 11:39 77-year-old female with PMH including hypertension and hyperlipidemia presents to the sp3 ED with chief complaint mild headache from a fall 3 weeks ago and a resolving scalp laceration. Patient was sent by PCP Dr. Terrazas for CT evaluation secondary to patient initially presenting there. No other symptoms reported including neck pain, perseveration, memory loss, speech abnormalities, prodrome to the fall which was mechanical as reported, chest pain, back pain, shortness of breath, abdominal pain, other joint pain, bleeding, syncope, near syncope, or any other signs or symptoms on ROS at this time.. Historical: - Allergies: 10:56 PENICILLINS; ll1 - PMHx: 10:56 GERD; Hyperlipidemia; Hypertension; Thyroid problem; ll1 - Immunization history:: Adult Immunizations up to date. - Social history:: Smoking status: Patient denies any tobacco usage or history of. ROS: 11:40 Constitutional: Negative for fever, chills, and weight loss, Eyes: Negative for injury, sp3 pain, redness, and discharge, ENT: Negative for injury, pain, and discharge, Neck: Negative for injury, pain, and swelling, Cardiovascular: Negative for chest pain, palpitations, and edema, Respiratory: Negative for shortness of breath, cough, wheezing, and pleuritic chest pain, Abdomen/GI: Negative for abdominal pain, nausea, vomiting, diarrhea, and constipation, Back: Negative for injury and pain, MS/Extremity: Negative for injury and deformity, Skin: Negative for injury, rash, and discoloration, Psych: Negative for depression, anxiety, suicide ideation, homicidal ideation, and hallucinations, Allergy/Immunology: Negative for hives, rash, and allergies, Endocrine: Negative for neck swelling, polydipsia, polyuria, polyphagia, and marked weight changes, 11:40 All other systems are negative, Exam: 11:40 Constitutional: This is a well developed, well nourished patient who is awake, alert, sp3 and in no acute distress. Eyes: Pupils equal round and reactive to light, extra-ocular motions intact. Lids and lashes normal. Conjunctiva and sclera are non-icteric and not injected. Cornea within normal limits. Periorbital areas with no swelling, redness, or edema. ENT: Nares patent. No nasal discharge, no septal abnormalities noted. External auditory canals are clear. Oropharynx with no redness, swelling, or masses, exudates, or evidence of obstruction, uvula midline. Mucous membranes moist. Neck: Trachea midline, no thyromegaly or masses palpated, and no cervical lymphadenopathy. Supple, full range of motion without nuchal rigidity, or vertebral point tenderness. No Meningismus. Chest/axilla: Normal chest wall appearance and motion. Nontender with no deformity. No lesions are appreciated. Cardiovascular: Regular rate and rhythm with a normal S1 and S2. No gallops, murmurs, or rubs. Normal PMI, no JVD. No pulse deficits. Respiratory: Lungs have equal breath sounds bilaterally, clear to auscultation and percussion. No rales, rhonchi or wheezes noted. No increased work of breathing, no retractions or nasal flaring. Abdomen/GI: Soft, non-tender, with normal bowel sounds. No distension or tympany. No guarding or rebound. No evidence of tenderness throughout. Back: No spinal tenderness. No costovertebral tenderness. Full range of motion. Skin: Warm, dry with normal turgor. Normal color with no rashes, no lesions, and no evidence of cellulitis. MS/ Extremity: Pulses equal, no cyanosis. Neurovascular intact. Full, normal range of motion. Neuro: Awake and alert, GCS 15, oriented to person, place, time, and situation. Cranial nerves II-XII grossly intact. Motor strength 5/5 in all extremities. Sensory grossly intact. Cerebellar exam normal. Normal gait. Psych: Awake, alert, with orientation to person, place and time. Behavior, mood, and affect are within normal limits. 11:40 Head/face: 2 cm scalp laceration healing with mild dried blood noted in the left parietal occipital region. No scalp hematoma noted. Neurological exam is normal.. Vital Signs: 10:56 Weight 75.3 kg; Height 5 ft. 4 in. ; Pain 0/10; ll1 11:02 BP 152 / 76; Pulse 64; Resp 20; Temp 97.5; Pulse Ox 99% on R/A; aw1 10:56 Body Mass Index 28.49 (75.30 kg, 162.56 cm) ll1 10:56 Pain Scale: Adult ll1 MDM: 10:53 Patient medically screened. sp3 11:41 Data reviewed: vital signs, nurses notes, radiologic studies. ED course: Patient with sp3 normal neurological exam. CT scan of the head is negative. We have ruled out intracranial hemorrhage, scalp fracture or other traumatic abnormality. We will safely discharge patient home at this time.. 04/12 10:54 Order name: CT Head Brain wo Cont; Complete Time: 11:33 sp3 Administered Medications: No medications were administered Disposition Summary: 04/12/23 11:38 Discharge Ordered Notes: Location: Home sp3 Condition: Stable sp3 Diagnosis - Closed head injury, scalp laceration sp3 Followup: sp3 - With: Private Physician - When: Upon discharge from the Emergency Department - Reason: Continuance of care Discharge Instructions: - Discharge Summary Sheet sp3 - Head Injury, Adult sp3 Forms: - Medication Reconciliation Form sp3 - Thank You Letter sp3 - Antibiotic Education sp3 - Prescription Opioid Use sp3 - Patient Portal Instructions sp3 - Leadership Thank You Letter sp3 Signatures: Dispatcher [employer] Khai Varela, HUGH RN ll1 Andi Miguel MD MD sp3
[2023-04-12 11:49] VITALS: BP 152/76; TEMP 97.5; O2SAT 99
== END ==
LOC: ER 10:44
DX: S01.01XA Laceration without foreign body of scalp, initial encounter (principal); S09.8XXA Other specified injuries of head, initial encounter; W18.30XA Fall on same level, unspecified, initial encounter; I10 Essential (primary) hypertension; Z88.0 Allergy status to penicillin
CPT/HCPCS: 70450; 99284

== ENCOUNTER 2023-05-26 09:40 | Day surgery (SDC) | payer OTHER, BC ==
[2023-05-25 13:28] LABS: Absolute Lymphocytes (CBC) 1.6 K/uL (0.7-4.9); Hematocrit 39.7 % (36.0-45.0); Lymphocytes % 24.4 % (15.3-44.8); MPV 7.4 fL (7.6-11.3); Platelets 183 thou/uL (152-406); RBC Red Blood Cell Count 4.73 M/uL (3.86-4.86)
[2023-05-25 13:41] LABS: Potassium 4.1 mEq/L (3.5-5.1)
--- NOTE | 2023-05-25 16:04 | EKG ---
Test Date: 2023-05-25 Test Time: 14:28:31 Specification Manager: MEREDITH MEASUREMENT RESULTS: Intervals: Rate: 74 CO: 182 QRSD: 78 QT: 414 QTc: 459 [place]: P: 68 CO: 182 QRS: 82 T: 74 INTERPRETIVE STATEMENTS: Normal sinus rhythm Low voltage QRS Borderline ECG Compared to ECG 06/24/2019 20:26:58 Low QRS voltage now present Right-axis deviation no longer present Electronically Signed On 05-25-23 16:04:12 EVENT SERVICES MANAGER by Rodney Dickerson
[2023-05-26] MEDS: Ringers Lactate 1,000 ML IV ONE (10:00)
[2023-05-26] MEDS ORDERED: ONDANSETRON 4 MG/2 ML VIAL ONE (10:46)
[2023-05-26] MEDS ORDERED: dexAMETHasone 4 MG/ML VIAL ONE (10:46)
[2023-05-26] MEDS ORDERED: LIDOCAINE 1% MPF 5 ML VIAL ONE (10:46)
[2023-05-26] MEDS ORDERED: MIDAZOLAM HCL 2 MG/2 ML INJ ONE (10:46)
[2023-05-26] MEDS ORDERED: propofoL 200 MG/20 ML VIAL IV ONE (10:46)
[2023-05-26] MEDS ORDERED: FENTANYL CITR 100 MCG/2 ML ONE (10:46)
--- NOTE | 2023-05-26 12:06 | RAD REPORT ---
EXAM DESCRIPTION: RAD - Hand Left 2 View - 05/26/2023 11:48 am CLINICAL HISTORY: PINNING COMPARISON: No comparisons FINDINGS: Fluoroscopy time is 0.9 minutes.
[2023-05-26 12:46] VITALS: O2SAT 95
--- NOTE | 2023-05-26 12:50 | OP ---
Date of Procedure: 05/26/2023 Surgeon: Haris Streeter MD Preoperative Diagnosis: Left third and fourth metacarpal fractures. Postoperative Diagnosis: Left third and fourth metacarpal fractures. Procedures: Left third and fourth closed reduction with percutaneous pin fixation of third and fourt h metacarpal fractures. Estimated Blood Loss: Less than 3 cc. Complications: There were no complications. Specimens: No pathology specimens sent. Indications For Operation: Ms. Hernandez is a 77-year-old female who unfortunately injured her left hand . She does not remember exactly when she hurt it, initially saying 4 days but then saying over a wee k. Finally she decides on sometime ago, but she is not sure exactly when. Since that time, she had pain and swelling in her hand. She came to see me in my office with ecchymosis as well as pain. X-r ays were taken which demonstrated a spiral fracture of the third metacarpal as well as a displaced fr acture of the third metacarpal, both of these being in the shaft. They appeared to be relatively wel l aligned. However, given multiple metacarpal fractures, risks, benefits, and alternatives of differ ent methods of treating these were discussed with her. She states she understands things as presente d and we will proceed with closed reduction and percutaneous pin fixation. The risks associated with this were discussed with her as well as care of her hand. Description Of Procedure: The patient was taken to the operating room, placed in supine position. A well-padded tourniquet was placed on superior left arm. However, it was not used throughout the gianni e. Following this, her left upper extremity was then prepped and draped in the usual sterile fashion for the procedure. Attention was brought in with the C-arm and the collateral recess of the third m etacarpal was identified and pin was placed there. It was then placed across the fracture site witho ut difficulty and a second one was then placed at the collateral recess and it was placed and javier ed this slightly past the fracture site and exits the bone and appears to have bicortical fixation. Therefore, we will leave this as our second pin to ensure that it was not prominent in the hand. Att ention was then turned to the fourth. A standard longitudinal pin was then placed getting quite a bi t dorsal to allow for avoiding the articular surface as possible. However, this was then placed acro ss the fracture site. The reduction appears to be in line and longitudinal. The hand was then exami geoff and was found to have no rotation or angular deformity of any digits. The pins were then bent an d left protruding from the skin with use of dressings and a very well-padded splint was placed consid ering a volar splint, but however, given the patient's age and a slight amount of confusion, possibly we will bring this over to the back side to protect the pins as well. After this, the patient was a wakened, taken to recovery room in good condition. No complications. /TISHA Voice ID: [id number] Report ID: [id number]
[2023-05-26 13:08] VITALS: BP 171/77; TEMP 97.6
== END 2023-05-26 13:55 | disposition home or self-care (01) ==
LOC: OR 09:40
PROVIDERS: ATTEND Orthopaedic Surgery
PROC: 0PSQ34Z Reposition Left Metacarpal with Internal Fixation Device, Percutaneous Approach (ICD-10-PCS; principal; 2023-05-26 11:00)
DX: S62.323A Displaced fracture of shaft of third metacarpal bone, left hand, initial encounter for closed fracture (principal); S62.325A Displaced fracture of shaft of fourth metacarpal bone, left hand, initial encounter for closed fracture; I10 Essential (primary) hypertension; E78.5 Hyperlipidemia, unspecified; E03.9 Hypothyroidism, unspecified; I27.20 Pulmonary hypertension, unspecified; I73.9 Peripheral vascular disease, unspecified; K21.9 Gastro-esophageal reflux disease without esophagitis; R73.9 Hyperglycemia, unspecified; Z79.899 Other long term (current) drug therapy; Z88.0 Allergy status to penicillin; Z83.3 Family history of diabetes mellitus
CPT/HCPCS: 93005; 85025; 80048; 36415; 73120; 26608 ×2; J2704; J1100; J2001; J2250; J3010; J2405; J7120